=== PATIENT | male | born 1945 | race Caucasian/White ===

== ENCOUNTER 2017-07-28 08:47 | Outpatient (CLI) | payer MEDICARE, BC ==
--- NOTE | 2017-07-28 11:42 | MRI ---
MRI RIGHT KNEE WITHOUT CONTRAST: HISTORY: M25.561. Stood from a sitting position and right knee popped 2 weeks ago. COMPARISON: None. FINDINGS: Medial Meniscus: There is undersurface flap tear of the body and posterior horn medial meniscus with medial gutter extrusion of a flap fragment. The tear does extend to the posterior root attachment. Lateral Meniscus: There is mild degenerative signal of the body of the lateral meniscus with free ed ge fraying. Extensor Mechanism: The quadriceps tendon, patella, and patella tendon are all intact. CARTILAGE: Patellofemoral Compartment: There is multifocal less than 50% cartilage fissure patella apex and lat eral patellar facet. At the lateral trochlea near the trochlear is a full-thickness cartilage defect measuring 3 mm in transverse x 8 mm in craniocaudad dimension with articular surface remodeling and subchondral cyst formation. Medial Compartment: There is a multifocal 25-50% cartilage loss of the weightbearing surface of medi ofemoral condyle without a full-thickness defect. No full-thickness fissure. Lateral Compartment: There is a single full-thickness fissure of the central weightbearing surface l ateral tibial plateau measuring 2 x 2 mm with a subchondral cyst. Remainder of the cartilage appears to be intact. The medial collateral ligament and lateral collateral ligaments are intact. Muscles: Normal muscle signal and bulk. Mild prepatellar soft tissue edema. IMPRESSION: 1. Undersurface flap tear of the body and posterior horn medial meniscus is seen to the root attachm ent. There is 3 mm medial gutter extrusion of the flap fragment. 2. Mild degeneration of the anterior cruciate ligament. 3. There is a focal full-thickness 2 x 8 mm cartilage defect of the lateral trochlea with articular surface remodeling as well as subchondral cyst formation. 4. 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 5. Trace popliteal cyst. POS: [facility]
== END 2017-07-28 08:48 | disposition home or self-care (01) ==
LOC: SCSMRI 08:47
PROVIDERS: ATTEND Orthopaedic Surgery
DX: M25.561 Pain in right knee (principal); M17.11 Unilateral primary osteoarthritis, right knee; M94.261 Chondromalacia, right knee

== ENCOUNTER 2017-08-10 07:31 | Day surgery (SDC) | payer MEDICARE, BC ==
[2017-08-09 10:26] VITALS: BMI 30.2
[2017-08-10] MEDS ORDERED: CEFAZOLIN/Water 2 GM/20 ML SYRINGE ONE (08:16)
[2017-08-10 08:29] LABS: #Eosinphils 0.4 thou/uL (0.0-0.7); #Lymphocytes 0.9 thou/uL (1.20-3.40); #Monocytes 0.5 thou/uL (0.11-0.59); #Neutrophils 3.4 thou/uL (1.40-6.50); %Basophils 0.8 % (0.0-1.0); %Eosinophils 7.3 % (0.0-10.0); %Lymphocytes 17.7 % (21.0-51.0); Hematocrit 49.4 % (42.0-52.0); Mean Platelet Volume 9.2 fL (7.4-10.4); Red Blood Cell (RBC) Count 5.11 mill/uL (4.70-6.10); White Blood Cell (WBC) Count 5.2 thou/uL (4.8-10.8)
[2017-08-10] MEDS ORDERED: Diprivan 20 ML ONE (08:32)
[2017-08-10 08:45] LABS: Anion Gap 10 mmol/L (10-20); BUN (Urea Nitrogen) 19 mg/dL (8.4-25.7); Calc. Creatinine Clearance 83 mL/min (70-130); Calcium 9.6 mg/dL (7.8-10.44); Carbon Dioxide 28 mmol/L (23-31); Chloride 104 mmol/L (98-107); Estimated GFR-MDRD 56
--- NOTE | 2017-08-10 11:22 | OP ---
DATE: 08/10/2017 PREOPERATIVE DIAGNOSIS: Medial meniscus tear, right knee. POSTOPERATIVE DIAGNOSIS: Medial meniscus tear, right knee. SURGEON: Deni Felix M.D. ANESTHESIA: General. BLOOD LOSS: Minimal. SPECIMENS: None. DRAINS: None. COMPLICATIONS: None. FINDINGS AT SURGERY: No significant osteoarthritis complex tear of the medial meniscus, intact ACL. The scope was placed in the lateral portal and probe was placed in medial portal and debrided the me dial meniscus using basket forceps and smoothed using a 4-0 full radius resector confirmed the menisc us, rim was stable. The remainder of the knee was examined. Findings were as described above. The knee was irrigated and drained. Sterile dressings applied.
[2017-08-10] MEDS ORDERED: Bupivacaine HCl 0.5%/Epinephrine 1:200,000/PF 30 ml Vial ONE (13:45)
[2017-08-10] MEDS ORDERED: Lidocaine 2% w/Epinephrine 1:200K 20 ML VIAL ONE (13:45)
[2017-08-10] MEDS ORDERED: Ondansetron HCl/PF 4 MG/2 ML Vial ONE (15:48)
[2017-08-10] MEDS ORDERED: Propofol 200 MG/20 ML VIAL ONE (15:48)
[2017-08-10] MEDS ORDERED: ePHEDrine/0.9% NaCl/PF SYRINGE 50 mg/10 ml ONE (15:48)
--- NOTE | 2017-08-26 13:25 | EKG ---
Test Reason : PREOP Blood Pressure : / mmHG Vent. Rate : 062 BPM Atrial Rate : 062 BPM P-R Int : 186 ms QRS Dur : 096 ms QT Int : 398 ms P-R-T Axes : 051 052 046 degrees QTc Int : 403 ms Normal sinus rhythm Normal ECG When compared with ECG of 20-MAR-2012 09:54, No significant change was found Confirmed by JUNG KONG MD ([id number]) on 08/26/2017 1:25:26 PM Referred By: RADHA Confirmed By:JUNG KONG MD
== END 2017-08-10 12:35 | disposition home or self-care (01) ==
LOC: SDC 07:31
PROVIDERS: ATTEND Orthopaedic Surgery
PROC: 0SBC4ZZ Excision of Right Knee Joint, Percutaneous Endoscopic Approach (ICD-10-PCS; principal; 2017-08-10)
DX: S83.241A Other tear of medial meniscus, current injury, right knee, initial encounter (principal); E78.00 Pure hypercholesterolemia, unspecified; K21.9 Gastro-esophageal reflux disease without esophagitis; M19.90 Unspecified osteoarthritis, unspecified site; M10.9 Gout, unspecified; H91.90 Unspecified hearing loss, unspecified ear; I10 Essential (primary) hypertension; Z79.82 Long term (current) use of aspirin; Z79.02 Long term (current) use of antithrombotics/antiplatelets; Z79.899 Other long term (current) drug therapy; Z88.5 Allergy status to narcotic agent; Z88.1 Allergy status to other antibiotic agents; Z98.1 Arthrodesis status; Z98.890 Other specified postprocedural states
CPT/HCPCS: 29881; 80048; 85025; 93005; 97139; G8978; G8979; G8980; 93010; J0670; J2405; J2704

== ENCOUNTER 2017-08-14 14:42 | Outpatient (CLI) | payer MEDICARE, BC ==
--- NOTE | 2017-08-14 18:19 | ULT ---
RIGHT LOWER EXTREMITY VENOUS DOPPLER ULTRASOUND: Date: 08/14/17 COMPARISON: None. HISTORY: Knee swelling, edema, prior knee surgery. TECHNIQUE: Multiplanar Díaz scale sonographic imaging of the venous structures of the right lower extremity obta ined with color flow and spectral analysis. FINDINGS: The right common femoral vein, greater saphenous vein, profunda femoral vein, femoral vein, popliteal vein, and posterior tibial vein are patent. There is normal blood flow, augmentation, and compressio n within the deep venous system of the right lower extremity. No evidence for deep venous thrombosis. IMPRESSION: No evidence for deep venous thrombosis of the right lower extremity. POS: [facility]
== END 2017-08-14 14:43 | disposition home or self-care (01) ==
LOC: ULT 14:42
PROVIDERS: ATTEND Orthopaedic Surgery Sports Medicine
DX: R22.41 Localized swelling, mass and lump, right lower limb (principal); Z96.651 Presence of right artificial knee joint

== ENCOUNTER 2018-12-11 07:43 | Outpatient (CLI) | payer MEDICARE, BC ==
--- NOTE | 2018-12-11 09:45 | MRI ---
MRI LEFT KNEE: 12/11/2018 PROVIDED CLINICAL HISTORY: Left knee pain. FINDINGS: Mucinous degeneration of the ACL demonstrated. The anterior cruciate ligament, posterior cruciate li gament, medial collateral ligament, and lateral collateral ligament complex demonstrate an intact MR appearance. There is a complex, nondisplaced degenerative tear involving the body of the medial meniscus. The la teral meniscus demonstrates no definite evidence for tear. No focal articular cartilage defect is apparent. Tricompartmental articular cartilage thinning, most conspicuously involving the medial patellar facet. There is a small knee joint effusion. No focal concerning regional marrow or muscular signal abnorma lity apparent. IMPRESSION: 1. Complex, nondisplaced, degenerative tear involving the body of the medial meniscus. 2. Small knee joint effusion. 3. Patellar articular chondrosis. POS: [facility]
== END 2018-12-11 07:44 | disposition home or self-care (01) ==
LOC: TBSIIMAG 07:43
PROVIDERS: ATTEND Orthopaedic Surgery
DX: M23.92 Unspecified internal derangement of left knee (principal); M25.462 Effusion, left knee; M22.2X2 Patellofemoral disorders, left knee

== ENCOUNTER 2018-12-25 08:02 | Day surgery (SDC) | payer MEDICARE, BC ==
[2018-12-24 11:35] VITALS: BMI 30.2
[2018-12-25 09:05] LABS: #Eosinphils 0.3 thou/uL (0.0-0.7); #Lymphocytes 1.2 thou/uL (1.20-3.40); #Monocytes 0.6 thou/uL (0.11-0.59); #Neutrophils 4.6 thou/uL (1.40-6.50); %Basophils 0.6 % (0.0-1.0); %Lymphocytes 18.2 % (21.0-51.0); %Monocytes 9.1 % (0.0-10.0); %Neutrophils 68.1 % (42.0-75.0); Hemoglobin 14.9 g/dL (14.0-18.0); Mean Corpuscular HGB CONC 31.9 g/dL (32.0-36.0); Mean Corpuscular Volume 93.9 fL (78.0-98.0); Mean Platelet Volume 9.2 fL (7.4-10.4); Platelet Count 168 thou/uL (130-400); RBC Distribution Width 13.6 % (11.5-14.5); Red Blood Cell (RBC) Count 4.97 mill/uL (4.70-6.10); White Blood Cell (WBC) Count 6.8 thou/uL (4.8-10.8)
[2018-12-25 09:24] LABS: Anion Gap 12 mmol/L (10-20); BUN (Urea Nitrogen) 22 mg/dL (8.4-25.7); Calc. Creatinine Clearance 72 mL/min (70-130); Calcium 9.4 mg/dL (7.8-10.44); Carbon Dioxide 27 mmol/L (23-31); Chloride 107 mmol/L (98-107); Estimated GFR-MDRD 50; Glucose 107 mg/dL (83-110); Potassium 4.4 mmol/L (3.5-5.1); Sodium 142 mmol/L (136-145)
[2018-12-25] MEDS ORDERED: PROPOFOL 20 ML ONE (09:24)
[2018-12-25] MEDS ORDERED: Bupivacaine HCl 0.5%/Epinephrine 1:200,000/PF 30 ml Vial ONE ×2 (10:14→16:02)
[2018-12-25] MEDS ORDERED: Ondansetron PF 4 MG/2 ML Vial ONE (15:43)
[2018-12-25] MEDS ORDERED: Lidocaine 1% PF 5 ML VIAL ONE (15:43)
[2018-12-25] MEDS ORDERED: PROPOFOL 200 MG/20 ML VIAL ONE (15:43)
[2018-12-25] MEDS ORDERED: Lidocaine 2% w/Epinephrine 1:200K 20 ML VIAL ONE (16:02)
--- NOTE | 2018-12-26 08:13 | OP ---
DATE OF PROCEDURE: 12/25/2018 PREOPERATIVE DIAGNOSIS: Medial meniscus tear, left knee. POSTOPERATIVE DIAGNOSIS: Medial meniscus tear, left knee. PROCEDURE PERFORMED: Arthroscopic partial medial meniscectomy. FINDINGS OF SURGERY: Intact lateral compartment, intact patellofemoral joint. Some grade 3 chondromalacia of medial femoral condyle. Complex tear involving most of the posterior horn of the medial meniscus. DESCRIPTION OF PROCEDURE: The patient was taken to the operating room, where general anesthesia was induced. Left leg was prepped and draped in sterile fashion. Scope was placed in the lateral portal and probe was placed in the medial portal. I performed a partial medial meniscectomy using basket forceps, removed a large portion of the posterior meniscus. I then smoothed with a 4.0 full radius resector. I probed the meniscus, confirmed that it was stable. I swept the gutters for loose bodies and checked the intercondylar notch and suprapatellar pouch for loose bodies. The knee was then irrigated and drained, and sterile dressing was applied. Job ID: [id number]
== END 2018-12-25 12:45 | disposition home or self-care (01) ==
LOC: SDC 08:02
PROVIDERS: ATTEND Orthopaedic Surgery
PROC: 0SBD4ZZ Excision of Left Knee Joint, Percutaneous Endoscopic Approach (ICD-10-PCS; principal; 2018-12-25)
DX: S83.232A Complex tear of medial meniscus, current injury, left knee, initial encounter (principal); M94.262 Chondromalacia, left knee; E78.00 Pure hypercholesterolemia, unspecified; K21.9 Gastro-esophageal reflux disease without esophagitis; M19.90 Unspecified osteoarthritis, unspecified site; M10.9 Gout, unspecified; Z79.82 Long term (current) use of aspirin; Z79.899 Other long term (current) drug therapy; Z88.1 Allergy status to other antibiotic agents; Z88.5 Allergy status to narcotic agent; Z88.8 Allergy status to other drugs, medicaments and biological substances
CPT/HCPCS: 36415; 80048; 85025; 93005; 93010; J0670; J0690; J2704

== ENCOUNTER 2020-02-19 11:03 | Outpatient (CLI) | payer MEDICARE, BC ==
--- NOTE | 2020-02-19 12:55 | RAD ---
RADIOGRAPH ABDOMEN 2 VIEWS: DATE: 02/19/2020. HISTORY: 74-year-old male with right lower quadrant abdominal pain. FINDINGS: Bowel gas pattern is normal. No evidence of pneumoperitoneum. IMPRESSION: 1. No evidence of bowel obstruction. 2. If there is clinical concern for appendicitis, consider CT of abdomen and pelvis. POS: [facility]
== END 2020-02-19 11:04 | disposition home or self-care (01) ==
LOC: BICRAD 11:03
PROVIDERS: ATTEND Family Medicine
DX: R10.9 Unspecified abdominal pain (principal)
CPT/HCPCS: 74019

== ENCOUNTER 2020-05-05 15:16 | Outpatient (CLI) | payer MEDICARE, BC ==
--- NOTE | 2020-05-05 16:04 | RAD ---
X-RAY SINUSES RIBEIRO VIEW ONLY: 05/05/20 HISTORY: MRI clearance. FINDINGS/IMPRESSION: No radiopaque foreign body is seen in the orbits. POS: [facility]
--- NOTE | 2020-05-05 16:31 | MRI ---
MRI lumbar spine noncontrast HISTORY: Low back pain. Left leg radiculopathy. FINDINGS: The conus medullaris has normal appearance. Vertebral body heights are maintained. There is desiccation of all of the intervertebral discs. Images including the retroperitoneum partially show lobular parapelvic cysts of the kidneys. T12-L1, L1-2: Osteophytosis. Central canal and neural foramina are patent. L2-3: Disc space narrowing. Minimal degenerative retrolisthesis. Posterior disc bulge and circumferen tial degenerative changes. Moderate to severe stenosis of the central canal. Moderate bilateral foraminal stenoses. L3-4: Minimal degenerative spondylolisthesis. Posterior disc bulge and circumferential degenerative c hanges. Moderate to severe stenosis of the central canal. Moderate right and mild left foraminal stenoses. L4-5: Minimal disc bulge. Circumferential degenerative changes. Thecal sac is patent. Mild right and mild to moderate left foraminal stenoses. L5-S1: Very mild posterior disc bulge. Thecal sac is patent. Osteophytosis of the facets. Mild to mod erate right and mild left foraminal stenoses. IMPRESSION : Degenerative changes of the lumbar spine. Stenosis most pronounced at the central canal L2-3 level. N o focal nerve root compression is evident.
--- NOTE | 2020-05-05 16:39 | RAD ---
EXAM: XR Lumbar Spine Comp W Bending DATE: 05/05/2020 12:00 AM INDICATION: Spinal stenosis and neurogenic claudication COMPARISON: MR lumbar spine without contrast dated May 05, 2020 FINDING: There is mild levoscoliosis of the lumbar spine centered at L2-3. There is mild retrolisthe sis of L2 on L3 without appreciable abnormal translational motion. There is mild retrolisthesis of L1-L2 that is accentuated with extension. There is mild multilevel spondylosis of the lumbar spine wi th moderate disc degenerative disease at L2-3. No acute fracture is evident. There are scattered vascular calcifications. No definite pars defects are evident. IMPRESSION:Moderate lumbar spondylosis. Mild abnormal translational motion at L1-L2. Mild retrolisthe sis of L2 on L3 without appreciable abnormal translational motion.
== END 2020-05-05 15:17 | disposition home or self-care (01) ==
LOC: BICMRI 15:16
PROVIDERS: ATTEND Anesthesiology Pain Medicine
DX: M48.062 Spinal stenosis, lumbar region with neurogenic claudication (principal); M43.12 Spondylolisthesis, cervical region; M47.816 Spondylosis without myelopathy or radiculopathy, lumbar region
CPT/HCPCS: 70210; 72100; 72148

== ENCOUNTER 2020-09-01 06:38 | Outpatient (CLI) | payer MEDICARE, BC ==
[2020-09-01 11:00] LABS: Anion Gap 11 mmol/L (10-20); BUN (Urea Nitrogen) 14 mg/dL (8.4-25.7); Calc. Creatinine Clearance 0 mL/min (70-130); Carbon Dioxide 26 mmol/L (23-31); Chloride 107 mmol/L (98-107); Glucose 92 mg/dL (83-110); Potassium 4.3 mmol/L (3.5-5.1); Sodium 140 mmol/L (136-145)
[2020-09-01 11:21] LABS: Hemoglobin 16.5 g/dL (14.0-18.0); Mean Corpuscular HGB CONC 33.2 G/DL (32.0-36.0); Mean Corpuscular Hemoglobin 30.7 PG (27.0-33.0); Mean Corpuscular Volume 92.6 fl (80.0-100.0); Mean Platelet Volume 12.3 fl (7.4-10.4); Platelet Count 166 10x3/uL (130-400); RBC Distribution Width 13.9 % (11.5-14.5); Red Blood Cell (RBC) Count 5.37 10x6/uL (4.40-5.80); White Blood Cell (WBC) Count 6.3 10x3/uL (4.5-11.0)
[2020-09-01 18:57] LABS: SARS-CoV-2 MS2 Positive; SARS-CoV-2 N Gene Negative; SARS-CoV-2 S Gene Negative; SARS-CoV-2 by NAA Not Detected (NotDetected); SARS-CoV-2 orf1ab Negative
== END 2020-09-01 06:39 | disposition home or self-care (01) ==
LOC: LABBT 06:38
PROVIDERS: ATTEND Neurological Surgery
DX: Z01.818 Encounter for other preprocedural examination (principal); M54.16 Radiculopathy, lumbar region; Z20.822 Contact with and (suspected) exposure to COVID-19
CPT/HCPCS: 80048; 85027; 93005; U0003; 87635; 93010

== ENCOUNTER 2021-02-03 08:37 | Outpatient (CLI) | payer MEDICARE, BC | END 2021-02-03 08:38 | disposition home or self-care (01) | LOC: SCSMRI 08:37 | PROVIDERS: ATTEND Family Medicine | DX: M54.16 Radiculopathy, lumbar region (principal); M43.16 Spondylolisthesis, lumbar region; M48.061 Spinal stenosis, lumbar region without neurogenic claudication | CPT/HCPCS: 72148 ==

== ENCOUNTER 2021-02-23 15:00 | Outpatient (CLI) | payer MEDICARE, BC | END 2021-02-23 15:01 | disposition home or self-care (01) | LOC: BICCT 15:00 | PROVIDERS: ATTEND Neurological Surgery | DX: M51.16 Intervertebral disc disorders with radiculopathy, lumbar region (principal) | CPT/HCPCS: 72131 ==

== ENCOUNTER 2021-08-13 13:38 | Outpatient (CLI) | payer MEDICARE, BC | END 2021-08-13 13:39 | disposition home or self-care (01) | LOC: TBSIIMAG 13:38 | PROVIDERS: ATTEND Nurse Practitioner Family | DX: M48.062 Spinal stenosis, lumbar region with neurogenic claudication (principal); M47.816 Spondylosis without myelopathy or radiculopathy, lumbar region; M51.36 Other intervertebral disc degeneration, lumbar region; M47.817 Spondylosis without myelopathy or radiculopathy, lumbosacral region; Z98.890 Other specified postprocedural states | CPT/HCPCS: 72120; 72148 ==

== ENCOUNTER 2021-10-04 08:26 | Outpatient (CLI) | payer MEDICARE, BC | END 2021-10-04 08:27 | disposition home or self-care (01) | LOC: TBSIIMAG 08:26 | PROVIDERS: ATTEND Orthopaedic Surgery | DX: M96.89 Other intraoperative and postprocedural complications and disorders of the musculoskeletal system (principal) ==

== ENCOUNTER 2021-11-01 14:05 | Outpatient (CLI) | payer MEDICARE, BC ==
[2021-11-01 14:50] LABS: #Basophils 0.1 10x3/uL (0.0-0.2); #Eosinphils 0.2 10x3/uL (0.0-0.5); #Monocytes 0.5 10x3/uL (0.0-1.1); #Neutrophils 4.7 10x3/uL (1.5-8.4); %Basophils 0.9 % (0.0-2.0); %Eosinophils 2.9 % (0.0-6.0); %Lymphocytes 16.4 % (18.0-47.0); %Monocytes 7.3 % (0.0-10.0); Hemoglobin 15.3 g/dL (13.5-17.5); Mean Corpuscular HGB CONC 33.1 g/dL (32.0-36.0); Mean Corpuscular Hemoglobin 31.2 pg (27.0-33.0); Mean Corpuscular Volume 94.3 fl (81.2-95.1); Mean Platelet Volume 12.2 fl (7.4-10.4); Platelet Count 150 10x3/uL (150-450); White Blood Cell (WBC) Count 6.6 10x3/uL (3.5-10.5)
[2021-11-01 15:17] LABS: Anion Gap 15 mmol/L (10-20); BUN (Urea Nitrogen) 29 mg/dL (8.4-25.7); Calc. Creatinine Clearance 0 mL/min (70-130); Calcium 8.9 mg/dL (7.8-10.44); Carbon Dioxide 25 mmol/L (23-31); Chloride 106 mmol/L (98-107); Glucose 110 mg/dL (83-110); Potassium 4.3 mmol/L (3.5-5.1); Sodium 142 mmol/L (136-145)
[2021-11-02 03:28] LABS: SARS-CoV-2 PCR by NAA Not Detected (NotDetected)
== END 2021-11-01 14:06 | disposition home or self-care (01) ==
LOC: LABBT 14:05
PROVIDERS: ATTEND Orthopaedic Surgery
DX: Z01.812 Encounter for preprocedural laboratory examination (principal); Z96.612 Presence of left artificial shoulder joint; Z20.822 Contact with and (suspected) exposure to COVID-19
CPT/HCPCS: 80048; 85025; U0003; U0005

== ENCOUNTER 2021-11-25 06:18 | Inpatient (IN) | payer MEDICARE, BC ==
[2021-10-29 13:19] VITALS: BMI 28.8
[2021-11-25] MEDS ORDERED: Vancomycin 1.5 GRAM/300 ML BAG 1.5 GM in Premix Bag 1 BAG IVPB SCH (06:45)
[2021-11-25] MEDS ORDERED: Sodium Chloride 0.9% 100 ML ONE (06:48)
[2021-11-25] MEDS ORDERED: Tranexamic Acid 1,000 MG/10 ML VIAL ONE (06:48)
[2021-11-25] MEDS ORDERED: Midazolam HCl 2 mg/2 ml Vial ONE (06:55)
[2021-11-25] MEDS ORDERED: Lidocaine 1% (PF) 30 ML VIAL ONE (06:55)
[2021-11-25] MEDS ORDERED: Fentanyl 100 MCG/2 ML VIAL ONE (06:55)
[2021-11-25] MEDS ORDERED: Lidocaine 1% PF 5 ML VIAL ONE (07:02)
[2021-11-25] MEDS ORDERED: Ondansetron PF 4 MG/2 ML Vial ONE (07:02)
[2021-11-25] MEDS ORDERED: Dexamethasone 20 MG/5 ML VIAL ONE (07:02)
[2021-11-25] MEDS ORDERED: PROPOFOL 200 MG/20 ML VIAL ONE (07:02)
[2021-11-25] MEDS ORDERED: Glycopyrrolate 0.2 MG/ML 5 ML SYRINGE ONE (07:02)
[2021-11-25] MEDS ORDERED: Rocuronium Bromide 10 MG/ML (10ML VIAL) ONE (07:02)
[2021-11-25] MEDS ORDERED: Bupivacaine HCl 0.5%/Epinephrine 1:200,000/PF 30 ml Vial ONE (07:02)
[2021-11-25] MEDS ORDERED: ceFAZolin 2 GM/DEX 5% 100 ML BAG ONE (07:12)
[2021-11-25] MEDS ORDERED: Phenylephrine 10 MG/ML VIAL ONE ×2 (07:30→07:47)
[2021-11-25] MEDS ORDERED: Acetaminophen/Codeine 30-300mg Tablet PO PRN (08:24)
[2021-11-25] MEDS ORDERED: Promethazine HCl 25 MG/ML VIAL IM PRN ×2 (08:30→10:57)
[2021-11-25] MEDS ORDERED: Ropivacaine 0.2% 550 ML 550 ML NERVE BLCK SCH (08:30)
[2021-11-25] MEDS ORDERED: Zolpidem Tartrate 5 MG TAB PO PRN (08:30)
[2021-11-25] MEDS ORDERED: Ondansetron PF 4 MG/2 ML Vial IVP PRN (08:30)
[2021-11-25] MEDS ORDERED: Bupivacaine 0.5% 10 ML VIAL ONE (08:32)
[2021-11-25] MEDS ORDERED: Non-Formulary Item 1 EACH (Celecoxib [Celebrex] 200 MG Capsule) PO SCH (09:00)
[2021-11-25] MEDS ORDERED: Non-Formulary Item 1 EACH (Cholecalciferol (Vitamin D3) [Vitamin D] 1000 UNIT Capsule) PO SCH (09:00)
[2021-11-25] MEDS ORDERED: Non-Formulary Item 1 EACH (Esomeprazole Magnesium [Nexium] 20 MG Capsule.Dr) PO SCH (09:00)
[2021-11-25] MEDS ORDERED: Non-Formulary Item 1 EACH (Carvedilol [Carvedilol] 12.5 MG Tablet) PO SCH (09:00)
[2021-11-25] MEDS ORDERED: SUGAMMADEX SODIUM 200 MG/2 ML VIAL ONE (09:43)
[2021-11-25] MEDS ORDERED: Promethazine HCl 25 MG/ML VIAL IVPB PRN (10:57)
[2021-11-25] MEDS ORDERED: Ondansetron HCl/PF 4 MG/2 ML Vial IVP PRN (10:57)
[2021-11-25] MEDS ORDERED: Ketorolac Tromethamine 30 MG/ML VIAL IVP SCH (12:00)
[2021-11-25] MEDS: Lisinopril 20 MG TAB PO SCH ×2 (15:28→19:40)
[2021-11-25] MEDS: Furosemide 20 MG TAB PO SCH (15:28)
[2021-11-25] MEDS: Carvedilol 6.25 MG TAB PO SCH ×2 (15:29→19:40)
[2021-11-25] MEDS: Cholecalciferol 1,000 UNITS (25 MCG) TAB PO SCH (15:29)
[2021-11-25] MEDS: CeleCOXIB 100 MG CAP PO SCH (15:29)
[2021-11-25] MEDS: Folic Acid 1 MG TAB PO SCH (15:29)
[2021-11-25] MEDS: Cyanocobalamin (Vitamin B-12) 1,000 MCG TAB PO SCH (15:29)
[2021-11-25] MEDS: Aspirin 81 mg Enteric Coated Tablet PO SCH (15:30)
[2021-11-25] MEDS: Allopurinol 300 MG TAB PO SCH (15:30)
[2021-11-25] MEDS: CEFAZOLIN 2 GM, Admixture Fee 1 EACH in Sodium Chloride 0.9% 100 ML IVPB SCH (15:41)
[2021-11-25] MEDS: Lactated Ringer's 1,000 ML IV SCH (17:53)
[2021-11-25] MEDS: Chlorthalidone 25 MG TAB PO SCH (17:54)
[2021-11-25] MEDS: Amlodipine 5 MG TAB PO SCH (17:54)
[2021-11-25] MEDS: Potassium Chloride 10 MEQ TAB PO SCH (17:54)
[2021-11-25] MEDS: Acetaminophen/Codeine 30-300mg Tablet PO PRN (19:39)
[2021-11-25] MEDS ORDERED: Rosuvastatin 20 MG TAB PO SCH (21:00)
[2021-11-26] MEDS: Lactated Ringer's 1,000 ML IV SCH (00:08)
[2021-11-26] MEDS: CEFAZOLIN 2 GM, Admixture Fee 1 EACH in Sodium Chloride 0.9% 100 ML IVPB SCH (00:08)
[2021-11-26 08:05] VITALS: BP 122/73; TEMP 99.3
[2021-11-26] MEDS: Carvedilol 6.25 MG TAB PO SCH (08:10)
[2021-11-26] MEDS: Acetaminophen/Codeine 30-300mg Tablet PO PRN (08:11)
[2021-11-26] MEDS: Lisinopril 20 MG TAB PO SCH (08:12)
[2021-11-26] MEDS: Cholecalciferol 1,000 UNITS (25 MCG) TAB PO SCH (08:12)
[2021-11-26] MEDS: Cyanocobalamin (Vitamin B-12) 1,000 MCG TAB PO SCH (08:12)
[2021-11-26] MEDS: CeleCOXIB 100 MG CAP PO SCH (08:13)
[2021-11-26] MEDS: Aspirin 81 mg Enteric Coated Tablet PO SCH ×2 (08:13→08:23)
[2021-11-26] MEDS: Folic Acid 1 MG TAB PO SCH (08:14)
[2021-11-26] MEDS: Amlodipine 5 MG TAB PO SCH (08:14)
[2021-11-26] MEDS: Potassium Chloride 10 MEQ TAB PO SCH (08:14)
[2021-11-26] MEDS: Chlorthalidone 25 MG TAB PO SCH (08:24)
[2021-11-26] MEDS: Furosemide 20 MG TAB PO SCH (08:24)
[2021-11-26] MEDS: Allopurinol 300 MG TAB PO SCH (08:25)
== END 2021-11-26 10:30 | disposition home or self-care (01) | DRG 483 ==
LOC: SDC 06:18 → SURG A 06:54
PROVIDERS: ADMIT Orthopaedic Surgery; ATTEND Orthopaedic Surgery
PROC: 0RRK00Z Replacement of Left Shoulder Joint with Reverse Ball and Socket Synthetic Substitute, Open Approach (ICD-10-PCS; principal; 2021-11-25)
PROC: 3E0T3BZ Introduction of Anesthetic Agent into Peripheral Nerves and Plexi, Percutaneous Approach (ICD-10-PCS; 2021-11-25)
DX: M19.012 Primary osteoarthritis, left shoulder (principal); M75.22 Bicipital tendinitis, left shoulder; Z20.822 Contact with and (suspected) exposure to COVID-19; E78.00 Pure hypercholesterolemia, unspecified; K21.9 Gastro-esophageal reflux disease without esophagitis; M10.9 Gout, unspecified; H91.90 Unspecified hearing loss, unspecified ear; Z88.6 Allergy status to analgesic agent; Z88.5 Allergy status to narcotic agent; Z88.8 Allergy status to other drugs, medicaments and biological substances; Z79.899 Other long term (current) drug therapy; Z79.82 Long term (current) use of aspirin; Z79.02 Long term (current) use of antithrombotics/antiplatelets; Z98.1 Arthrodesis status; Z82.49 Family history of ischemic heart disease and other diseases of the circulatory system; Z82.5 Family history of asthma and other chronic lower respiratory diseases; Z01.812 Encounter for preprocedural laboratory examination
CPT/HCPCS: 80048; 85025; A4306; C1713; C1776; J0690; J1100; J2001; J2250; J2370; J2405; J2704; J2795; J3010; J3370; J3490; J7120; U0003; U0005

== ENCOUNTER 2022-03-04 08:21 | Outpatient (CLI) | payer MEDICARE, BC | END 2022-03-04 08:22 | disposition home or self-care (01) | LOC: TBSIIMAG 08:21 | PROVIDERS: ATTEND Anesthesiology Pain Medicine | DX: M47.26 Other spondylosis with radiculopathy, lumbar region (principal); Z98.890 Other specified postprocedural states | CPT/HCPCS: 72148 ==

== ENCOUNTER 2022-05-12 08:15 | Outpatient (CLI) | payer MEDICARE, BC ==
[2022-05-12] MEDS ORDERED: Iopamidol 370 76% 100 ML VIAL ONE (14:30)
== END 2022-05-12 08:16 | disposition home or self-care (01) ==
LOC: CT 08:15
PROVIDERS: ATTEND Physician Assistant Medical
DX: K52.9 Noninfective gastroenteritis and colitis, unspecified (principal); K21.9 Gastro-esophageal reflux disease without esophagitis; K57.30 Diverticulosis of large intestine without perforation or abscess without bleeding; M47.814 Spondylosis without myelopathy or radiculopathy, thoracic region; M47.816 Spondylosis without myelopathy or radiculopathy, lumbar region; I70.0 Atherosclerosis of aorta; I70.8 Atherosclerosis of other arteries; N40.0 Benign prostatic hyperplasia without lower urinary tract symptoms; N28.1 Cyst of kidney, acquired
CPT/HCPCS: 74177; 82565; Q9967

== ENCOUNTER 2023-10-23 14:56 | Outpatient (CLI) | payer MEDICARE, BC | END 2023-10-23 14:57 | disposition home or self-care (01) | LOC: BICRAD 14:56 | PROVIDERS: ATTEND Family Medicine | DX: M79.642 Pain in left hand (principal); S60.352A Superficial foreign body of left thumb, initial encounter; M19.042 Primary osteoarthritis, left hand ==

== ENCOUNTER 2024-03-22 18:04 | Emergency (ER) | payer MEDICARE, BC ==
[2024-03-22] MEDS ORDERED: Lidocaine 1% w/Epinephrine 1:100K 20 ML VIAL ONE (18:21)
[2024-03-22] MEDS ORDERED: Boostrix 0.5 ML (Tdap) VIAL (>/=7 yrs of age) ONE (18:22)
== END 2024-03-22 19:30 | disposition home or self-care (01) ==
LOC: ERS 18:04
DX: S61.012A Laceration without foreign body of left thumb without damage to nail, initial encounter (principal); M79.671 Pain in right foot; I10 Essential (primary) hypertension; Z23 Encounter for immunization; W26.0XXA Contact with knife, initial encounter
CPT/HCPCS: 12001; 90471; 90715

== ENCOUNTER 2024-09-22 12:38 | Emergency (ER) | payer MEDICARE, BC ==
[2024-09-22] MEDS ORDERED: Lidocaine 1% w/Epinephrine 1:100K 20 ML VIAL ONE (13:06)
== END 2024-09-22 14:57 | disposition home or self-care (01) ==
LOC: ERS 12:38
DX: S01.01XA Laceration without foreign body of scalp, initial encounter (principal); I10 Essential (primary) hypertension; I25.10 Atherosclerotic heart disease of native coronary artery without angina pectoris; E78.5 Hyperlipidemia, unspecified; Z79.82 Long term (current) use of aspirin; Z79.899 Other long term (current) drug therapy; V86.95XA Unspecified occupant of 3- or 4- wheeled all-terrain vehicle (ATV) injured in nontraffic accident, initial encounter
CPT/HCPCS: 12014; 99282